=== PATIENT | male | born 1950 | race Caucasian/White ===

== ENCOUNTER 2017-11-20 20:08 | Emergency (ER) | payer MEDICARE, OTHER ==
[~2017-11-20] VITALS: Ht 172.7 cm; Wt 77.6 kg
[~2017-11-20 20:08] MED LIST: LORTAB 7.5-5001 EACH PO; [UNRECOGNIZED DRUG - REMARK]
[2017-11-20] MEDS ORDERED: TETANUS/DIPHTHERIA TOX ADULT 0.5 ML SYR IM ONE (20:45)
[2017-11-20] MEDS ORDERED: NEOMYCIN/POLYMYX/BACITR OINT 0.9 GM PKT ONE (20:53)
== END 2017-11-20 21:12 | disposition home or self-care (01) ==
LOC: ER 20:11
DX: S61.511A Laceration without foreign body of right wrist, initial encounter (principal); W26.0XXA Contact with knife, initial encounter; Y92.008 Other place in unspecified non-institutional (private) residence as the place of occurrence of the external cause
CPT/HCPCS: 90471; 90714; 99283